=== PATIENT | female | born 1945 | race Two or more races ===

== ENCOUNTER 2019-10-19 07:27 | Outpatient (CLI) | payer OTHER | END 2019-10-19 07:31 | disposition home or self-care (01) | LOC: TOM 07:27 | DX: R19.5 Other fecal abnormalities (principal) ==

== ENCOUNTER 2020-02-25 15:34 | Inpatient (IN) | payer OTHER ==
[~2020-02-25] VITALS: Ht 152.4 cm; Wt 54.4 kg
[2020-03-09] MEDS ORDERED: SYNTHROID50 MCG PO (13:45)
[2020-03-18] MEDS ORDERED: PERCOCET 5-3251 EACH PO (09:45)
[2020-03-18] MEDS ORDERED: PRILOSEC OTC20 MG PO (09:45)
== END 2020-03-18 11:05 | disposition home or self-care (01) | DRG 330 ==
LOC: O/R 03-15 06:10 → SURG 03-15 06:10 → SURH 03-15 09:15 → SURG 03-15 11:01 → SURH 03-15 14:30 → SURG 03-18 11:05
PROVIDERS: ADMIT Surgery; ATTEND Surgery
PROC: 0DTJ4ZZ Resection of Appendix, Percutaneous Endoscopic Approach (ICD-10-PCS; 2020-03-15)
PROC: 07BC4ZX Excision of Pelvis Lymphatic, Percutaneous Endoscopic Approach, Diagnostic (ICD-10-PCS; 2020-03-15)
PROC: 0DTF4ZZ Resection of Right Large Intestine, Percutaneous Endoscopic Approach (ICD-10-PCS; principal; 2020-03-15 14:30)
DX: C18.2 Malignant neoplasm of ascending colon (principal); C77.5 Secondary and unspecified malignant neoplasm of intrapelvic lymph nodes

== ENCOUNTER → 2020-02-29 10:45 | Outpatient (CLI) | payer OTHER | END | disposition home or self-care (01) | LOC: LAB 10:45 | PROVIDERS: ATTEND Radiology Diagnostic Radiology | DX: N20.0 Calculus of kidney (principal) ==

== ENCOUNTER 2020-03-11 07:14 | Outpatient (CLI) | payer OTHER ==
[~2020-03-11 07:14] MED LIST: SYNTHROID50 MCG PO
== END 2020-03-11 07:18 | disposition home or self-care (01) ==
LOC: TOM 07:14
PROVIDERS: ATTEND Surgery
DX: C18.2 Malignant neoplasm of ascending colon (principal); K92.1 Melena; R59.0 Localized enlarged lymph nodes; K59.09 Other constipation
CPT/HCPCS: 71260; 74177; Q9965

== ENCOUNTER 2020-03-14 09:00 | Day surgery (SDC) | payer OTHER | END 2020-03-14 14:10 | disposition home or self-care (01) | LOC: AMB-ENDOS 09:00 | PROVIDERS: ATTEND Surgery | DX: D12.7 Benign neoplasm of rectosigmoid junction (principal); Z20.828 Contact with and (suspected) exposure to other viral communicable diseases ==

== ENCOUNTER 2020-04-22 07:29 | Day surgery (SDC) | payer OTHER ==
[~2020-04-22 07:29] MED LIST changes: +PERCOCET 5-3251 EACH PO; +PRILOSEC OTC20 MG PO
[2020-04-22] MEDS ORDERED: PERCOCET 5-3251 EACH PO (10:46)
== END 2020-04-22 12:50 | disposition home or self-care (01) ==
LOC: CIR.AMB 07:29
PROVIDERS: ATTEND Surgery
DX: C18.2 Malignant neoplasm of ascending colon (principal); Z20.828 Contact with and (suspected) exposure to other viral communicable diseases
CPT/HCPCS: 36561; C1751

== ENCOUNTER 2020-05-14 07:08 | Outpatient (CLI) | payer OTHER | END 2020-05-14 13:19 | disposition home or self-care (01) | LOC: LAB 07:08 | DX: C18.2 Malignant neoplasm of ascending colon (principal) ==

== ENCOUNTER 2020-08-13 07:16 | Outpatient (CLI) | payer OTHER | END 2020-08-13 07:33 | disposition home or self-care (01) | LOC: LAB 07:16 | DX: C18.2 Malignant neoplasm of ascending colon (principal) ==

== ENCOUNTER 2021-02-14 08:00 | Outpatient (CLI) | payer OTHER | END 2021-02-14 08:30 | disposition home or self-care (01) | LOC: PPH VACUNA 08:00 | DX: Z23 Encounter for immunization (principal) ==

== ENCOUNTER 2021-03-07 08:00 | Outpatient (CLI) | payer OTHER | END 2021-03-07 08:30 | disposition home or self-care (01) | LOC: PPH VACUNA 08:00 | DX: Z23 Encounter for immunization (principal) ==

== ENCOUNTER 2021-04-05 10:39 | Outpatient (CLI) | payer OTHER | END 2021-04-05 10:53 | disposition home or self-care (01) | LOC: TOM 10:39 | PROVIDERS: ATTEND Internal Medicine | DX: Q44.6 Cystic disease of liver (principal); Q61.01 Congenital single renal cyst; C18.2 Malignant neoplasm of ascending colon | CPT/HCPCS: 71260; 74177; Q9965 ==

== ENCOUNTER 2021-05-22 05:31 | Day surgery (SDC) | payer OTHER | END 2021-05-22 11:40 | disposition home or self-care (01) | LOC: AMB-ENDOS 05:31 | PROVIDERS: ATTEND Surgery | DX: K62.89 Other specified diseases of anus and rectum (principal) ==

== ENCOUNTER 2021-06-30 05:58 | Day surgery (SDC) | payer OTHER ==
[2021-06-30] MEDS ORDERED: DICLOFENAC POTA50 MG PO (07:56)
[2021-06-30] MEDS ORDERED: NEURONTIN300 MG PO (07:57)
== END 2021-06-30 10:45 | disposition home or self-care (01) ==
LOC: CIR.AMB 05:58
PROVIDERS: ATTEND Surgery
DX: C18.2 Malignant neoplasm of ascending colon (principal); Z20.822 Contact with and (suspected) exposure to COVID-19

== ENCOUNTER 2021-08-14 08:44 | Outpatient (CLI) | payer OTHER ==
[~2021-08-14 08:44] MED LIST changes: +DICLOFENAC POTA50 MG PO; +NEURONTIN300 MG PO
== END 2021-08-14 08:47 | disposition home or self-care (01) ==
LOC: TOM 08:44
PROVIDERS: ATTEND Internal Medicine
DX: C18.2 Malignant neoplasm of ascending colon (principal); R91.1 Solitary pulmonary nodule
CPT/HCPCS: 71260; Q9965

== ENCOUNTER 2021-10-17 08:03 | Outpatient (CLI) | payer OTHER | END 2021-10-17 09:00 | disposition home or self-care (01) | LOC: SONOGRAMA 08:03 | PROVIDERS: ATTEND Internal Medicine | DX: C18.2 Malignant neoplasm of ascending colon (principal); R91.1 Solitary pulmonary nodule; K76.89 Other specified diseases of liver ==

== ENCOUNTER 2022-06-04 07:28 | Outpatient (CLI) | payer OTHER | END 2022-06-04 07:42 | disposition home or self-care (01) | LOC: MAMO-SONO 07:28 | PROVIDERS: ATTEND General Practice | DX: N64.89 Other specified disorders of breast (principal); E04.1 Nontoxic single thyroid nodule ==

== ENCOUNTER 2022-06-06 09:06 | Outpatient (CLI) | payer OTHER | END 2022-06-06 09:17 | disposition home or self-care (01) | LOC: TOM 09:06 | PROVIDERS: ATTEND Internal Medicine | DX: C18.2 Malignant neoplasm of ascending colon (principal) | CPT/HCPCS: 71270; 74178; Q9965 ==

== ENCOUNTER 2023-05-17 10:46 | Outpatient (CLI) | payer OTHER | END 2023-05-17 10:56 | disposition home or self-care (01) | LOC: MAMO-SONO 10:46 | PROVIDERS: ATTEND Family Medicine | DX: N64.89 Other specified disorders of breast (principal); Z12.31 Encounter for screening mammogram for malignant neoplasm of breast ==

== ENCOUNTER 2023-06-06 09:21 | Outpatient (CLI) | payer OTHER | END 2023-06-06 09:30 | disposition home or self-care (01) | LOC: TOM 09:21 | DX: C18.2 Malignant neoplasm of ascending colon (principal); R91.1 Solitary pulmonary nodule | CPT/HCPCS: 71270; 74178; Q9965 ==

== ENCOUNTER 2024-06-09 09:38 | Outpatient (CLI) | payer OTHER | END 2024-06-09 09:41 | disposition home or self-care (01) | LOC: RAD 09:38 | PROVIDERS: ATTEND Family Medicine | DX: R10.9 Unspecified abdominal pain (principal) ==

== ENCOUNTER 2024-06-19 07:33 | Outpatient (CLI) | payer OTHER | END 2024-06-19 07:34 | disposition home or self-care (01) | LOC: NUCLEAR 07:33 | PROVIDERS: ATTEND Internal Medicine | DX: C18.2 Malignant neoplasm of ascending colon (principal); K76.89 Other specified diseases of liver | CPT/HCPCS: 78816; A9552 ==

== ENCOUNTER 2024-12-17 14:29 | Outpatient (CLI) | payer OTHER ==
[2024-12-17 16:01] LABS: CALCIUM 8.9 mg/dL (8.5-10.1); CHOL HDL RATIO 2.9 (0-5.0); CREATININE SERUM 0.76 mg/dL (0.55-1.02); GFR 73.79; POTASSIUM 4.64 mEq/L (3.5-5.1); T4 FREE 0.97 NG/ML (0.76-1.46); TSH 3.3 uIU/mL (0.358-3.74)
[2024-12-17 16:04] LABS: URINE APPEARANCE Clear; URINE BILIRRUBIN Negative (NEGATIVE); URINE BLOOD Moderate; URINE CAST 0.14 uL (0.0-1.40); URINE COLOR Yellow; URINE EPITHELIAL CELLS 18.1 uL (0.0-38.8); URINE GLUCOSE Negative (NEGATIVE); URINE KETONE Negative (NEGATIVE); URINE LEUKOCYTE Trace; URINE NITRATE Positive; URINE PROTEIN Negative (NEGATIVE); URINE UROBILINOGEN 0.2 E.U./dl; URINE WBC 16.7 uL (0.0-23.2)
[2024-12-17 16:05] LABS: URINE BACTERIA > 9821.5 uL (0.0-1933)
[2024-12-17 16:51] LABS: HEMATOCRIT 37.6 % (36.0-45.00); MEAN CELL VOLUME 90.8 fL (80.00-100.00); MEAN CORPUSCULAR HEMOGLOBIN 31.5 pg (27.00-32.0); MEAN CORPUSCULAR HGB CONC 34.7 g/dl (32.0-36.0); PLATELET COUNT 205 K/uL (150-450); RED BLOOD COUNT 4.14 M/uL (4.00-6.00); RED CELL DISTRIBUTION WIDTH 13.9 % (11.5-14.5)
== END 2024-12-17 14:57 | disposition home or self-care (01) ==
LOC: LAB 14:29
PROVIDERS: ATTEND General Practice
DX: D64.9 Anemia, unspecified (principal); N39.0 Urinary tract infection, site not specified; E78.2 Mixed hyperlipidemia; E03.9 Hypothyroidism, unspecified; Z12.11 Encounter for screening for malignant neoplasm of colon

== ENCOUNTER → 2024-12-22 07:25 | Outpatient (CLI) | payer OTHER ==
[2024-12-22 08:27] LABS: ob NEGATIVE (NEGATIVE)
== END | disposition home or self-care (01) ==
LOC: LAB 07:25
PROVIDERS: ATTEND General Practice
DX: D64.9 Anemia, unspecified (principal); N39.0 Urinary tract infection, site not specified; E78.2 Mixed hyperlipidemia; E03.9 Hypothyroidism, unspecified; Z12.11 Encounter for screening for malignant neoplasm of colon

== ENCOUNTER 2024-12-22 08:01 | Outpatient (CLI) | payer OTHER | END 2024-12-22 08:07 | disposition home or self-care (01) | LOC: TOM 08:01 | PROVIDERS: ATTEND Surgery | DX: C18.2 Malignant neoplasm of ascending colon (principal); K92.1 Melena; R59.0 Localized enlarged lymph nodes; K59.09 Other constipation | CPT/HCPCS: 71260; 74177; Q9965 ==

== ENCOUNTER 2025-04-30 09:02 | Outpatient (CLI) | payer OTHER | END 2025-04-30 09:15 | disposition home or self-care (01) | LOC: SONOGRAMA 09:02 → TOM 09:02 → SONOGRAMA 09:15 | DX: E04.2 Nontoxic multinodular goiter (principal); R42 Dizziness and giddiness; H91.91 Unspecified hearing loss, right ear ==

== ENCOUNTER 2025-07-21 07:08 | Outpatient (CLI) | payer OTHER | END 2025-07-21 07:09 | disposition home or self-care (01) | LOC: NUCLEAR 07:08 | PROVIDERS: ATTEND Family Medicine | DX: C18.9 Malignant neoplasm of colon, unspecified (principal) | CPT/HCPCS: 78815; A9552 ==